=== PATIENT | female | born 1940 | race Caucasian/White ===

== ENCOUNTER → 2020-09-22 | Outpatient (CLI) | payer MEDICARE, OTHER ==
[~2020-09-22] MED LIST: VISIPAQUE 320 MG/ML, 150ML BOTTLE ONE
== END | disposition home or self-care (01) ==
LOC: RAD 11:18
PROVIDERS: ATTEND Internal Medicine Cardiovascular Disease
DX: K44.9 Diaphragmatic hernia without obstruction or gangrene (principal); I50.40 Unspecified combined systolic (congestive) and diastolic (congestive) heart failure; I11.0 Hypertensive heart disease with heart failure; I77.810 Thoracic aortic ectasia; I70.0 Atherosclerosis of aorta; Z90.49 Acquired absence of other specified parts of digestive tract
CPT/HCPCS: 71275; 74174; Q9967

== ENCOUNTER 2020-09-28 07:59 | Inpatient (IN) | payer MEDICARE, OTHER ==
[~2020-09-28] VITALS: Ht 163.8 cm; Wt 81.0 kg
[2020-09-28 08:49] VITALS: BP 143/58
[2020-09-28] MEDS ORDERED: ONDANSETRON 2MG/ML, 2ML IV PRN (09:00)
[2020-09-28 09:18] LABS: MEAN CORPUSCULAR HEMOGLOBIN 31.7 pg (27.0-34.8); MEAN CORPUSCULAR HGB CONC 34.5 g/dL (32.4-35.8); MEAN PLATELET VOLUME 7.7 fL (7.4-10.4); PLATELET COUNT 112 x10^3/uL (130-400); RED BLOOD COUNT 4.68 x10^6/uL (3.82-5.3); RED CELL DISTRIBUTION WIDTH 13.3 % (9.6-15.2)
[2020-09-28 09:29] LABS: ALBUMIN 3.7 g/dL (3.4-5.0); ANION GAP 5 mmol/L (5-15); CALCIUM 9.1 mg/dL (8.5-10.1); CHLORIDE 105 mmol/L (98-107); INTERNATIONAL NORMALIZED RATIO 0.95 (0.93-1.1); PROTHROMBIN TIME 10.2 Seconds (9.6-11.5)
[2020-09-28 09:32] LABS: ALANINE AMINOTRANSFERASE 19 U/L (12-78); ALKALINE PHOSPHATASE 67 U/L (45-117); BILIRUBIN,TOTAL 0.6 mg/dL (0.2-1.0); CREATININE 0.85 mg/dL (0.55-1.02); TOTAL PROTEIN 7.5 g/dL (6.4-8.2)
[2020-09-28 09:36] LABS: BAND#(MANUAL) 0.05 x10^3/uL; BANDS%(MANUAL) 2 % (0-7); MONOS#(MANUAL) 0.28 x10^3/uL (0.3-2.7); MONOS% (MANUAL) 12 % (2-9); SEGS% (MANUAL) 51 % (42-75)
[2020-09-28 09:37] LABS: LYMPH#(MANUAL) 0.81 x10^3/uL (1-3.4); LYMPHS% (MANUAL) 35 % (22-44); SEG#(MANUAL) 1.17 x10^3/uL (1.8-6.8)
[2020-09-28] MEDS ORDERED: TRAZ50TA66 PO (09:37)
[2020-09-28] MEDS ORDERED: LEVO88TA4 PO (09:37)
[2020-09-28] MEDS ORDERED: ASPI81TA45 PO (09:37)
[2020-09-28] MEDS ORDERED: GABA100C PO (09:37)
[2020-09-28] MEDS ORDERED: FURO20TA3 PO (09:37)
[2020-09-28] MEDS ORDERED: RANO500T2 PO (09:37)
[2020-09-28] MEDS ORDERED: EZET10TA70 PO (09:37)
[2020-09-28] MEDS ORDERED: MELA10CA PO (09:37)
[2020-09-28] MEDS ORDERED: DULO20CA45 PO (09:37)
[2020-09-28] MEDS ORDERED: DIGO125T85 PO (09:37)
[2020-09-28] MEDS ORDERED: DICL100G25 TP (09:37)
[2020-09-28] MEDS ORDERED: SPIR25TA5 PO (09:37)
[2020-09-28 09:43] LABS: <PLATELET ESTIMATE> DECREASED; <PLT MORPHOLOGY> NORMAL PLT MORPH; <RBC MORPHOLOGY> NORMAL
[2020-09-28] MEDS ORDERED: FENTANYL PF 250 MCG/5ML ONE (09:50)
[2020-09-28] MEDS ORDERED: HEPARIN 1,000 UNITS/ML, 10ML ONE ×2 (09:51)
[2020-09-28] MEDS ORDERED: PROPOFOL 10 MG/ML, 20ML ONE (09:51)
[2020-09-28] MEDS ORDERED: DEXAMETHASONE 4 MG/ML, 1ML ONE ×2 (09:51)
[2020-09-28] MEDS ORDERED: ONDANSETRON 2MG/ML, 2ML ONE ×2 (09:51)
[2020-09-28] MEDS ORDERED: CEFAZOLIN 1,000 MG ONE ×2 (09:51)
[2020-09-28] MEDS ORDERED: PROTAMINE SULFATE 10 MG/ML, 5ML ONE (09:54)
[2020-09-28] MEDS ORDERED: PHENYLEPHRINE 10 MG/ML ONE (09:57)
[2020-09-28] MEDS ORDERED: SUCCINYLCHOLINE 20 MG/ML, 10ML ONE (09:57)
[2020-09-28] MEDS ORDERED: ROCURONIUM 10 MG/ML,10ML ONE (09:57)
[2020-09-28] MEDS ORDERED: SODIUM CHLORIDE 0.9% 1,000 ML IV ONE (10:00)
[2020-09-28] MEDS ORDERED: LABETALOL 20 MG/4 ML IVPush PRN (11:30)
[2020-09-28] MEDS ORDERED: ACETAMINOPHEN 325 MG TABLET PO PRN (11:30)
[2020-09-28] MEDS ORDERED: hydrALAzine 20 MG/ML, 1ML IVPush PRN (11:30)
[2020-09-28 12:25] VITALS: BP 120/62
[2020-09-28] MEDS: ASPIRIN 81 MG TABLET EC PO SCH (14:54)
[2020-09-28] MEDS ORDERED: VENL100T PO (18:24)
[2020-09-28] MEDS ORDERED: MELO15TA24 PO (18:24)
[2020-09-28] MEDS ORDERED: FAMO-79 PO (18:24)
[2020-09-28] MEDS ORDERED: RAMI2.5C49 PO (18:24)
[2020-09-28 19:45] VITALS: BP 123/70
[2020-09-28] MEDS: RANOLAZINE 500 MG TAB.ER.12H PO SCH (21:00)
[2020-09-28] MEDS ORDERED: TRAZODONE 50MG TABLET PO SCH (21:00)
[2020-09-29 01:01] VITALS: BP 106/66
[2020-09-29] MEDS ORDERED: LEVOTHYROXINE 88 MCG TABLET PO SCH (06:00)
[2020-09-29 06:32] LABS: BASOPHILS % (AUTO) 0 % (0-1); EOSINOPHILS % (AUTO) 0 % (1-7); LYMPHOCYTES % (AUTO) 16 % (22-44); MEAN CORPUSCULAR HEMOGLOBIN 31.7 pg (27.0-34.8); MEAN CORPUSCULAR HGB CONC 34.4 g/dL (32.4-35.8); MONOCYTES % (AUTO) 16 % (2-9); NEUTROPHILS % (AUTO) 68 % (42-75); PLATELET COUNT 101 x10^3/uL (130-400); RED BLOOD COUNT 4.56 x10^6/uL (3.82-5.3); RED CELL DISTRIBUTION WIDTH 12.9 % (9.6-15.2)
[2020-09-29 06:39] VITALS: BP 149/75
[2020-09-29 06:42] LABS: ANION GAP 6 mmol/L (5-15); CALCIUM 8.6 mg/dL (8.5-10.1); CHLORIDE 103 mmol/L (98-107)
[2020-09-29 06:45] LABS: CREATININE 0.92 mg/dL (0.55-1.02)
[2020-09-29] MEDS: RANOLAZINE 500 MG TAB.ER.12H PO SCH (08:28)
[2020-09-29] MEDS: ASPIRIN 81 MG TABLET EC PO SCH (08:28)
[2020-09-29] MEDS ORDERED: DULOXETINE 20 MG CAPSULE.DR PO SCH (09:00)
[2020-09-29] MEDS ORDERED: SPIRONOLACTONE 25 MG TABLET PO SCH (09:00)
[2020-09-29] MEDS ORDERED: FUROSEMIDE 20 MG TABLET PO SCH (09:00)
[2020-09-29] MEDS ORDERED: EZETIMIBE 10 MG TABLET PO SCH (09:00)
[2020-09-29] MEDS ORDERED: GABAPENTIN 100 MG CAPSULE PO SCH (09:00)
[2020-09-29] MEDS ORDERED: DIGOXIN 0.125 MG TABLET PO SCH (09:00)
[2020-09-29] MEDS ORDERED: ACET325T26 PO (11:01)
== END 2020-09-29 13:17 | disposition home or self-care (01) | DRG 266 ==
LOC: ORIP 07:59 → 5SO 12:16
PROVIDERS: ADMIT Internal Medicine Cardiovascular Disease; ATTEND Internal Medicine Cardiovascular Disease
PROC: B3101ZZ Fluoroscopy of Thoracic Aorta using Low Osmolar Contrast (ICD-10-PCS; 2020-09-28)
PROC: B24BZZ4 Ultrasonography of Heart with Aorta, Transesophageal (ICD-10-PCS; 2020-09-28)
PROC: 02RF38Z Replacement of Aortic Valve with Zooplastic Tissue, Percutaneous Approach (ICD-10-PCS; principal; 2020-09-28 10:30)
DX: I35.0 Nonrheumatic aortic (valve) stenosis (principal); Z00.6 Encounter for examination for normal comparison and control in clinical research program; I50.33 Acute on chronic diastolic (congestive) heart failure; Z20.822 Contact with and (suspected) exposure to COVID-19; E78.5 Hyperlipidemia, unspecified; F32.9 Major depressive disorder, single episode, unspecified; F41.9 Anxiety disorder, unspecified; I11.0 Hypertensive heart disease with heart failure
CPT/HCPCS: 33361; 36415; 76937; 80048; 80053; 85025; 85347; 85610; 86850; 86870; 86880; 86900; 86904; 86906; 86923; 87635; 93005; 93306; 93355; C1760; C1769; C1894; G0378; J0690; J1100; J1644; J2405; J2704; J2720; J3010; J0330; J2370; Q9967